=== PATIENT | female | born 1985 | race Caucasian/White ===

== ENCOUNTER → 2019-02-05 08:40 | Outpatient (CLI) | payer OTHER, SELFPAY ==
[2019-02-10 14:05] LABS: Inhibin B 53 pg/mL
== END ==
DX: N97.0 Female infertility associated with anovulation (principal)
CPT/HCPCS: 36415; 82397

== ENCOUNTER → 2021-10-23 07:52 | Outpatient (CLI) | payer OTHER, MEDICAID, SELFPAY | PROVIDERS: Referring Provider Nurse Practitioner Critical Care Medicine; Visit Provider Nurse Practitioner Critical Care Medicine | DX: R30.0 Dysuria (principal) | CPT/HCPCS: 81002; 87086; 87210 ==

== ENCOUNTER → 2023-02-01 10:51 | Outpatient (CLI) | payer OTHER, MEDICAID, SELFPAY ==
[2023-02-02 04:51] LABS: Hepatitis B Core AB w/Reflex Negative (Negative); Hepatitis BE Antigen Negative (Negative)
[2023-02-02 06:13] LABS: HSV 2 IGG AB 7.45 index (0.00-0.90); HSV1IGG < 0.91 index (0.00-0.90); RPR Screen Non Reactive (Non Reactive)
== END ==
PROVIDERS: PCP Family Medicine; Referring Provider Obstetrics & Gynecology; Visit Provider Obstetrics & Gynecology
DX: Z20.2 Contact with and (suspected) exposure to infections with a predominantly sexual mode of transmission (principal)
CPT/HCPCS: 36415; 86592; 86695; 86696; 86704; 87350